=== PATIENT | female | born 2000 | race Caucasian/White ===

== ENCOUNTER 2021-05-17 01:24 | Emergency (ER) | payer SELFPAY ==
[~2021-05-17] VITALS: Ht 68 cm; Wt 78.0 kg
--- NOTE | 2021-05-17 02:07 | ED Integumentary General ---
General Chief Complaint: Laceration Stated Complaint: LEFT ARM LAC Nursing Triage Note: Pt arrives via POV with c/o left forearm laceration. Pt reports she was at a [employer] when she received a lac to her left forearm from a broken beer bottle. Last tetanus unknown. 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 History of Present Illness Date Seen by Provider: May 17, 2021 Time Seen by Provider: 01:41 Initial Comments Patient is a 21-year-old female who presents to the emergency room with a chief complaint of laceration to the left wrist after having a beer bottle broken over her wrist. Patient states last tetanus was sometime in the beginning of her high school years. Complains of laceration pain, no loss of function to the fingers. No other complaints of recent illness or injury. All other review of systems reviewed and negative except as stated. Timing/Duration: just prior to arrival Severity: mild Location: extremities (Left wrist) Possible Cause: other (Broken beer bottle) Associated Symptoms: denies symptoms Allergies and Home Medications Allergies Coded Allergies: Penicillins (Verified Allergy, Unknown, 05/17/21) Patient Home Medication List Home Medication List Reviewed: Yes Sertraline HCl (Sertraline HCl) 100 Mg Tablet, 100 MG PO, (Reported) Entered as Reported by: YAZAN TERRY on 05/17/21 0210 Last Action: New Order Review of Systems Review of Systems Constitutional: see HPI EENTM: no symptoms reported Respiratory: no symptoms reported Cardiovascular: no symptoms reported Gastrointestinal: no symptoms reported : No Musculoskeletal: no symptoms reported Skin: other (Laceration left wrist) All Other Systems Reviewed Negative Unless Noted: Yes Past Cgzlysn-Cbmieg-Ggxiac Hx Patient Social History Tobacco Use?: No Use of E-Cig and/or Vaping dev: Yes Substance use?: Yes Substance type: Marijuana Alcohol Use?: Yes Alcohol Frequency: Once in a while Pt feels they are or have been: No Immunizations Up To Date First/Initial COVID19 Vaccinat: July 2020 Second COVID19 Vaccination Kapil: August 2020 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: [facility] Physical Exam Vital Signs Vital Signs - First Documented 05/17/21 01:34 Temp 36.8 Pulse 101 Resp 18 B/P (MAP) 120/94 (103) Pulse Ox 99 O2 Delivery Room Air Capillary Refill : Less Than 3 Seconds General Appearance: WD/WN, no apparent distress HEENT: PERRL/EOMI Cardiovascular: regular rate, rhythm Respiratory: no respiratory distress, no accessory muscle use Extremities: normal range of motion, non-tender Neurologic/Psychiatric: alert, normal mood/affect, oriented x 3 Skin: normal color, warm/dry Skin Problem Location: upper extremities (5 cm superficial laceration to the volar left wrist from the midpoint of the wrist medially; minimal active bleeding noted no obvious injury to underlying muscle belly.) Procedures/Interventions Wound Location: Upper Extremities Other Wound Location left wrist Wound Length (cm): 5 Wound's Depth, Shape: superficial, linear Wound Explored: clean Irrigated w/ Saline (ccs): 200 Anesthesia: 1% Lidocaine Volume Anesthetic (ccs): 4 Suture: Ethlion Suture Size: 4-0 Number of Sutures: 13 Layer Closure?: 1 Sterile Dressing Applied?: Yes Progress/Results/Core Measures Results/Orders My Orders Orders - MARYCRUZ AYALA MD Dipht,Pertuss(Acell),Tet Adult (Boostrix (05/17/21 02:15) Medications Given in ED Current Medications Medications Dose Ordered Sig/Diana Route Start Time Stop Time Status Last Admin Dose Admin Diphtheria/ Tetanus/Acell Pertussis 0.5 ml ONCE ONCE IM 05/17/21 02:15 05/17/21 02:16 DC 05/17/21 02:35 0.5 ML Vital Signs/I&O 05/17/21 01:34 Temp 36.8 Pulse 101 Resp 18 B/P (MAP) 120/94 (103) Pulse Ox 99 O2 Delivery Room Air Blood Pressure Mean: 103 Departure Impression Primary Impression: Laceration of left wrist Qualified Codes: S61.512A - Laceration without foreign body of left wrist, initial encounter Disposition: 01 HOME, SELF-CARE Condition: Stable Departure-Patient Inst. Decision time for Depature: 02:06 Referrals: [facility] [place] PHYSICIAN (PCP) Primary Care Physician Patient Instructions: Laceration Repair With Stitches ED Add. Discharge Instructions: Keep the wound clean dry and covered for the first couple of days. Wash gently with soap and water. You can apply a little bit of triple antibiotic ointment over the suture line for a couple of days, twice daily under a dry dressing. Please come back in 10 days to have the stitches removed. You can also go to the [facility] at [facility] to have your stitches removed. Come back to the emergency room sooner if you notice any increasing redness, swelling, drainage or any other emergent concerning symptoms that develop. MARYCRUZ AYALA MD May 17, 2021 02:07
[2021-05-17] MEDS ORDERED: SERT-414 PO (02:10)
[2021-05-17] MEDS ORDERED: TETANUS,DIPTH,PERTUSS P/F (BOOSTRIX) 0.5 ML VIAL IM ONE (02:15)
[2021-05-17 03:07] VITALS: BP 122/76
== END 2021-05-17 03:08 | disposition home or self-care (01) ==
LOC: ER 01:31
DX: S61.512A Laceration without foreign body of left wrist, initial encounter (principal); Z23 Encounter for immunization; W25.XXXA Contact with sharp glass, initial encounter
CPT/HCPCS: 12032; 90715

== ENCOUNTER 2021-05-27 15:03 | Emergency (ER) | payer OTHER ==
[~2021-05-27] VITALS: Ht 172 cm; Wt 78.0 kg
[~2021-05-27 15:03] MED LIST: SERT-414 PO
[2021-05-27 15:42] VITALS: BP 117/78
== END 2021-05-27 15:42 | disposition home or self-care (01) ==
LOC: EDUNIT# 15:03 → ER 15:05
DX: Z48.02 Encounter for removal of sutures (principal)

== ENCOUNTER 2021-06-16 20:26 | Emergency (ER) | payer OTHER ==
[~2021-06-16] VITALS: Ht 172 cm; Wt 76.0 kg
--- NOTE | 2021-06-16 21:18 | ED Cough/URI ---
General Chief Complaint: Cough/Cold/Flu Symptoms Stated Complaint: COUGH/CONGESTION/SORE THROAT/HEADACHE Nursing Triage Note: PT TO ER WITH C/O COUGH AND SORE THROAT SINCE LAST THURSDAY. PT HAS TRIED TAKING DAYQUILL AND DELSOM TODAY AND NOTHING SEEMS TO MAKE IT GO AWAY. PT STATES THIS HAPPENS EVERY YEAR AROUND THIS TIME History of Present Illness Date Seen by Provider: Jun 16, 2021 Time Seen by Provider: 20:45 Initial Comments 21-year-old female presents for cough, congestion and a sore throat since 06/12/2021. Patient has received both COVID vaccines. She has no known exposure. She denies any fevers. She has tried DayQuil and Delsym. Severity/Quality: moderate Prior Episodes/Possible Cause: occasional episodes Associated Symptoms: cough, nasal congestion, sore throat Allergies and Home Medications Allergies Coded Allergies: Penicillins (Verified Allergy, Unknown, 05/17/21) Patient Home Medication List Home Medication List Reviewed: Yes Sertraline HCl (Sertraline HCl) 100 Mg Tablet, 100 MG PO, (Reported) Entered as Reported by: YAZAN TERRY on 05/17/21 0210 Review of Systems Review of Systems Constitutional: no symptoms reported, see HPI EENTM: see HPI, nose congestion, throat pain Respiratory: see HPI, cough; No dyspnea on exertion, No short of breath, No wheezing Gastrointestinal: no symptoms reported, see HPI Genitourinary: no symptoms reported, see HPI All Other Systems Reviewed Negative Unless Noted: Yes Past Kfphduf-Launkd-Fajxcv Hx Patient Social History Use of E-Cig and/or Vaping dev: Yes E-Cig or Vaping type used: Nicotine Substance use?: Yes Substance type: Marijuana Substance frequency: Couple times a week Alcohol Use?: Yes Alcohol type: Beer Alcohol Frequency: Several times a month Pt feels they are or have been: No Immunizations Up To Date Influenza Vaccine Up-to-Date: No; Not Current First/Initial COVID19 Vaccinat: July 2020 Second COVID19 Vaccination Kapil: August 2020 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 oz. kg; 25.00 BMI Method:Estimated General Appearance: WD/WN, no apparent distress HEENT: PERRL/EOMI, normal ENT inspection, TMs normal, pharynx normal, other (Trace tenderness over the frontal sinuses) Neck: non-tender, full range of motion, supple, normal inspection; No lymphadenopathy (R), No lymphadenopathy (L) Respiratory: chest non-tender, lungs clear, normal breath sounds Cardiovascular: normal peripheral pulses, regular rate, rhythm Extremities: normal range of motion, non-tender, normal inspection Neurologic/Psychiatric: no motor/sensory deficits, alert, normal mood/affect, oriented x 3 Skin: normal color, warm/dry Procedures/Interventions Suture Size: 4-0 Progress/Results/Core Measures Suspected Sepsis SIRS Temperature: Pulse: 70 Respiratory Rate: 17 Blood Pressure 132 /91 Mean: 105 Results/Orders My Orders Vital Signs/I&O 06/16/21 20:40 Temp 36.6 Pulse 70 Resp 17 B/P (MAP) 132/91 (105) Pulse Ox 98 O2 Delivery Room Air Capillary Refill : Less Than 3 Seconds Blood Pressure Mean: 105 Progress Note : Time: 20:45 Progress Note Patient seen and evaluated, recommended having an influenza and Covid test, however the patient would like to have these done at the [facility] tomorrow. Discharge instructions and return precautions reviewed with her. Departure Impression Primary Impression: Viral URI with cough Disposition: 01 HOME, SELF-CARE Condition: Improved Departure-Patient Inst. Decision time for Depature: 21:15 Referrals: NO,LOCAL PHYSICIAN (PCP/Family) Primary Care Physician Patient Instructions: Viral Upper Respiratory Infection, Adult (DC) Add. Discharge Instructions: Continue to use Delsym, DayQuil and NyQuil. You may use Afrin nasal spray for 3 days then discontinue that. You may alternate between Tylenol and ibuprofen every 4 hours for pain or fever. You can use a [place] pot or other sinus irrigation. Follow-up with [facility] tomorrow for Covid testing. Return to the emergency department for new, urgent healthcare needs. All discharge instructions reviewed with patient and/or family. Voiced understanding. Copy Copies To 1: CARIN COLE MD, AMY ARNP Jun 16, 2021 21:18
[2021-06-16 21:32] VITALS: BP 117/82
== END 2021-06-16 21:32 | disposition home or self-care (01) ==
LOC: EDUNIT# 20:26 → ER 20:27
DX: J06.9 Acute upper respiratory infection, unspecified (principal)
CPT/HCPCS: 99282